=== PATIENT | female | born 1980 | race Caucasian/White ===

== ENCOUNTER → 2018-10-04 | Outpatient (CLI) | payer MEDICAID | END | disposition home or self-care (01) | LOC: U/S 15:00 | PROVIDERS: ATTEND Obstetrics & Gynecology | DX: Z32.01 Encounter for pregnancy test, result positive (principal) | CPT/HCPCS: 76801; 76817 ==

== ENCOUNTER 2019-02-16 18:05 | Emergency (ER) | payer MEDICAID ==
[~2019-02-16] VITALS: Ht 165.1 cm; Wt 68.2 kg
[~2019-02-16 18:05] MED LIST: IBUP-1542 PO
[2019-02-16 18:11] VITALS: Ht 165.1 cm; Wt 68.2 kg
[2019-02-16] MEDS ORDERED: IBUPROFEN 800 MG TAB PO ONE (20:00)
[2019-02-16 21:20] VITALS: BP 118/64; PULSE 88; RESP 20
== END 2019-02-16 21:20 | disposition home or self-care (01) ==
LOC: FTE 18:05
DX: J02.9 Acute pharyngitis, unspecified (principal)
CPT/HCPCS: Z7502; Z7610; 99282